=== PATIENT | female | born 1985 | race Two or more races ===

== ENCOUNTER 2022-10-21 15:48 | Emergency (ER) | payer OTHER ==
[~2022-10-21] VITALS: Ht 165.1 cm; Wt 117.0 kg
[2022-10-21] MEDS ORDERED: PRENATAL + DHA1 EAC1 (16:00)
== END 2022-10-21 21:03 | disposition home or self-care (01) ==
LOC: ER 15:48
DX: O20.9 Hemorrhage in early pregnancy, unspecified (principal); Z3A.10 10 weeks gestation of pregnancy

== ENCOUNTER 2022-10-30 23:12 | Emergency (ER) | payer OTHER ==
[~2022-10-30] VITALS: Ht 165.1 cm; Wt 114.3 kg
[~2022-10-30 23:12] MED LIST: PRENATAL + DHA1 EAC1
== END 2022-10-31 01:46 | disposition home or self-care (01) ==
LOC: ER 23:12
DX: O20.8 Other hemorrhage in early pregnancy (principal); Z3A.11 11 weeks gestation of pregnancy

== ENCOUNTER 2022-11-14 14:28 | Outpatient (CLI) | payer OTHER | END 2022-11-14 15:45 | disposition home or self-care (01) | LOC: PRENATAL 14:28 | PROVIDERS: ATTEND Obstetrics & Gynecology Maternal & Fetal Medicine | DX: O36.80X0 Pregnancy with inconclusive fetal viability, not applicable or unspecified (principal); O09.529 Supervision of elderly multigravida, unspecified trimester; O24.319 Unspecified pre-existing diabetes mellitus in pregnancy, unspecified trimester; O99.210 Obesity complicating pregnancy, unspecified trimester; Z3A.13 13 weeks gestation of pregnancy ==

== ENCOUNTER 2025-04-02 09:00 | Inpatient (IN) | payer OTHER ==
[2025-03-25 09:39] VITALS: BP 140/80
[2025-03-25 10:18] LABS: BASO % 0.3 % (0.1-1.2); EOS # 0.07 (0.04-0.54); EOS % 0.6 % (0.7-7.0); LYMPH # 2.66 (1.18-3.74); LYMPH % 23.1 % (19.3-53.1); MEAN PLATELET VOLUME 10.20 fl (9.4-12.4); MONO # 0.77 (0.24-0.82); MONO % 6.7 % (4.7-12.5); NEUT # 7.94 (1.56-6.13); NEUT % 69.1 % (34.0-71.1); RED CELL DISTRIBUTION WIDTH 13.5 % (11.6-14.4)
[2025-03-25 10:21] LABS: URINE APPEARANCE Clear; URINE BILIRRUBIN Negative (NEGATIVE); URINE BLOOD Negative; URINE COLOR Yellow; URINE GLUCOSE Negative (NEGATIVE); URINE KETONE Negative (NEGATIVE); URINE LEUKOCYTE Negative; URINE NITRATE Negative; URINE PROTEIN Negative (NEGATIVE); URINE UROBILINOGEN 0.2 E.U./dl
[2025-03-25 10:26] LABS: URINE BACTERIA 166.7 uL (0.0-1933); URINE EPITHELIAL CELLS 6.7 uL (0.0-38.8); URINE RBC 2.1 uL (0.0-20.8); URINE WBC 4.6 uL (0.0-23.2)
[2025-03-25 10:32] LABS: URINE CAST 0.00 uL (0.0-1.40)
[2025-03-25 11:02] LABS: INR 1.01
[2025-03-25 11:24] LABS: BUN CREA RATIO 27.0 (7.0-25.0); CREATININE SERUM 0.45 mg/dL (0.55-1.02); GFR 156.78; GLUCOSE FASTING 97.0 mg/dL (65-100); OSMOLALITY SERUM 275.0 MOSM/KG (275-295)
[~2025-04-02] VITALS: Ht 165.1 cm; Wt 130.2 kg
[~2025-04-02 09:00] MED LIST changes: +DEXAMETHASONE SODIUM PHOSPHATE 4 MG/ML VIAL ONE
[2025-04-02] MEDS ORDERED: ENALAPRILAT DIHYDRATE 1.25 MG/ML VIAL IV PRN (13:00)
[2025-04-02] MEDS ORDERED: ONDANSETRON HCL 2 MG/ML VIAL IV PRN (13:00)
[2025-04-02] MEDS ORDERED: TRAMADOL HCL 50 MG TABLET PO SCH (17:00)
[2025-04-02] MEDS ORDERED: ACETAMINOPHEN 500 MG GEL..CAP PO SCH (17:00)
[2025-04-02] MEDS ORDERED: LIDOCAINE HCL 30 ML,MAG HYDROX/ALUMINUM HYD/SIMETH 30 ML,DIPHENHYDRAMINE HCL 75 MG MM SCH (17:00)
[2025-04-02] MEDS ORDERED: CYCLOBENZAPRINE HCL 5 MG TABLET PO SCH (17:00)
[2025-04-02 18:39] VITALS: BP 121/76; O2SAT 98
[2025-04-02] MEDS ORDERED: Calcium Carbonate 1 TAB TABLET PO SCH (21:00)
[2025-04-02] MEDS ORDERED: PANTOPRAZOLE SODIUM 40 MG/VIAL VIAL IV PUSH SCH (21:00)
[2025-04-03 01:05] VITALS: BP 123/79; O2SAT 100
[2025-04-03 08:00] VITALS: BP 150/89; O2SAT 99
[2025-04-04] MEDS ORDERED: LEVOTHYROXINE SODIUM 175 MCG TABLET PO SCH (07:00)
== END 2025-04-03 12:09 | disposition home or self-care (01) | DRG 627 ==
LOC: CIR.AMB 09:00 → SURH 15:32 → O/R 15:32 → SURH 15:37
PROVIDERS: ADMIT Surgery; ATTEND Surgery
PROC: 0GSL0ZZ Reposition Right Superior Parathyroid Gland, Open Approach (ICD-10-PCS; 2025-04-02)
PROC: 00QQ0ZZ Repair Vagus Nerve, Open Approach (ICD-10-PCS; 2025-04-02)
PROC: 0GTH0ZZ Resection of Right Thyroid Gland Lobe, Open Approach (ICD-10-PCS; principal; 2025-04-02 09:45)
DX: C73 Malignant neoplasm of thyroid gland (principal)